=== PATIENT | male | born 1935 | race African-American/Black ===

== ENCOUNTER 2016-03-24 16:35 | Outpatient (CLI) | payer MEDICARE, OTHER | END 2016-03-24 23:59 | DX: E87.5 Hyperkalemia (principal); E78.5 Hyperlipidemia, unspecified; E11.9 Type 2 diabetes mellitus without complications; I10 Essential (primary) hypertension; N28.9 Disorder of kidney and ureter, unspecified ==

== ENCOUNTER 2018-08-16 10:37 | Outpatient (CLI) | payer MEDICARE, OTHER ==
--- NOTE | 2018-08-16 13:34 | CT Report ---
Reason: NEOPLASM OF UNSPECIFIED BEHAVIOR OF OTHER GENITOUR Procedure Date: 08/16/2018 Accession Number: [id number] / [id number] Procedure: CT - Abdomen/Pelvis WO CPT Code: FULL RESULT: EXAM: CT CHEST, ABDOMEN AND PELVIS EXAM DATE: 08/16/2018 10:53 AM. CLINICAL HISTORY: Prostate cancer. COMPARISONS: ABDOMEN/PELVIS W/WO 06/05/2013 1:55 PM CHEST W/O 08/16/2018 10:53 AM. TECHNIQUE: Routine helical CT imaging was performed through the chest, abdomen, and pelvis. IV contrast: None. Enteric contrast: No. Reconstructions: Coronal and sagittal. In accordance with CT protocol optimization, one or more of the following dose reduction techniques were utilized for this exam: automated exposure control, adjustment of mA and/or KV based on patient size, or use of iterative reconstructive technique. FINDINGS: Lungs/Pleura: In the right upper lobe on image 28 series 3 is a 1.8 x 1.1 cm slightly spiculated partially calcified soft tissue area of parenchymal distortion with an apparent associated 5 mm lucency potentially representing beam hardening artifact from the calcification versus small amount of associated bronchiectasis. Cavitation is felt to be less likely. 3 mm nodule left upper lobe image 20, 3 mm nodule left major fissure image 46, 4 mm nodule right lower lobe image 31, 3 mm nodule right middle lobe image 44. There is no pulmonary consolidation. Pleural spaces are clear. Mediastinum: There is no axillary, internal mammary, mediastinal or hilar lymphadenopathy by size criteria. There are three-vessel moderate coronary calcifications. There is no pericardial effusion. Liver: Normal. Gallbladder/Bile Ducts: Status post cholecystectomy. Spleen: A 1.9 x 1.6 cm hypodense lesion of the spleen was also seen in 2013, 1.4 x 1.3 cm at that time. Pancreas: Normal. Adrenal Glands: Normal. Kidneys: There are bilateral nonobstructing renal calculi measuring 3 mm or less as well as bilateral renal cysts and bilateral cortical parenchymal loss. 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 Peritoneal Cavity/Bowel: There is colonic diverticulosis, predominantly in the sigmoid colonic distribution without diverticulitis. There is no bowel obstruction. There is no free fluid or free air. There is no intraperitoneal or retroperitoneal lymphadenopathy by size criteria. Pelvic Organs: Fiducial markers are again seen in the region of the prostate bed. There is no definite pelvic lymphadenopathy by size criteria. Vasculature: Atherosclerotic disease without abdominal aortic aneurysm. Bones: Similar distribution of degenerative changes and presumed hemangioma along the inferior aspect of L4 with no definite aggressive osseous lesions detected. Other: None. IMPRESSION: Interval enlargement of hypodense splenic lesion as described, indeterminate in the setting of a limited CT without contrast. Pulmonary nodules including a 1.1 x 1.8 cm spiculated soft tissue focus with associated architectural distortion and calcification as described. Recommendation: Consideration for biopsy of the right upper lobe nodule. Management of the splenic finding depends on clinical index for suspicion. If warranted, consider contrast-enhanced examination or further characterization with ultrasound to determine whether MRI/nuclear medicine study would be helpful or biopsy is potentially indicated. RADIA
--- NOTE | 2018-08-17 14:34 | Nuclear Medicine Report ---
Reason: NEOPLASM OF UNSPECIFIED BEHAVIOR OF OTHER GENITOUR Procedure Date: 08/16/2018 Accession Number: [id number] / [id number] Procedure: NM - Bone Whole Body CPT Code: FULL RESULT: EXAM: BONE SCAN EXAM DATE: 08/16/2018 05:09 PM. CLINICAL HISTORY: NEOPLASM OF UNSPECIFIED BEHAVIOR OF OTHER GENITOUR. Prostate cancer. COMPARISON: ABDOMEN/PELVIS W/O 08/16/2018 10:53 AM CHEST W/O 08/16/2018 10:53 AM. TECHNIQUE: Following the intravenous administration of 30.7 mCi of technetium 99m MDP and an appropriate delay, a whole-body scan was performed in anterior and posterior projections. Site-specific spot views of the region of interest were obtained in various projections. FINDINGS: Normal renal radiotracer uptake and bladder activity. Normal soft tissue activity. Overall normal osseous uptake. Moderate uptake at the anterior skull in the region of the left frontal sinus, indeterminate, may be inflammatory. Moderate uptake with a linear configuration at approximately L3-L4, most likely corresponding to advanced disk degeneration by CT. Moderate uptake at the left aspect of the T11-T12 level of the spine, probably degenerative. Moderate lower cervical spinal uptake, may be degenerative. Small focus of uptake projecting over the region of the right ischiopubic ramus on the anterior whole body view, persists on spot images, indeterminate, metastasis versus urinary contamination. Small focus of uptake at the sternalchondral margin at the level of the fifth rib, indeterminate, may be posttraumatic. Nonspecific mild to moderate periprosthetic uptake at the knees bilaterally. Probable degenerative uptake at the shoulders, hips, sternoclavicular joints, bilateral feet. IMPRESSION: 1. Moderate uptake at the anterior skull in the region of the left frontal sinus, indeterminate, may be inflammatory. 2. Small focus of uptake projecting over the right ischiopubic ramus, indeterminate, metastasis versus urinary contamination. 3. Small focus of uptake at the right lower sternum, indeterminate, may be posttraumatic. 4. Other multifocal probable degenerative uptake as noted above. RADIA
== END 2018-08-16 10:38 | disposition home or self-care (01) ==
LOC: DI 10:37
PROVIDERS: ATTEND Urology
DX: D49.59 Neoplasm of unspecified behavior of other genitourinary organ (principal); N28.9 Disorder of kidney and ureter, unspecified; C61 Malignant neoplasm of prostate; R91.8 Other nonspecific abnormal finding of lung field; D73.89 Other diseases of spleen
CPT/HCPCS: 71250; 74176; 78306

== ENCOUNTER 2018-12-14 09:58 | Outpatient (CLI) | payer MEDICARE, OTHER ==
[2018-12-14 12:52] LABS: CALCIUM 8.9 mg/dL (8.5-10.3); CREATININE 1.8 mg/dL (0.6-1.2)
== END 2018-12-14 23:59 | disposition home or self-care (01) ==
LOC: LAB.WCP 09:58
PROVIDERS: ATTEND Family Medicine
DX: N18.3 Chronic kidney disease, stage 3 (moderate) (principal)
CPT/HCPCS: 36415; 80048

== ENCOUNTER 2022-04-24 13:52 | Outpatient (CLI) | payer MEDICARE, OTHER ==
--- NOTE | 2022-04-24 15:39 | XRAY Report ---
PROCEDURE: Elbow 3 View LT INDICATIONS: ELBOW JOINT PAIN TECHNIQUE: 3 views of the elbow were acquired. COMPARISON: None FINDINGS: Bones: No fractures or dislocations. No suspicious bony lesions. Enthesophyte formation at the medi al and lateral epicondyles may indicate underlying tendinopathy. Soft tissues: No elbow joint effusion. No suspicious soft tissue calcifications. Soft tissue edema is seen surrounding the elbow that is slightly more prominent posteriorly. IMPRESSION: 1.No acute osseous abnormality. If there is clinical concern or persistent symptoms, additional imagi ng such as repeat radiographs or advanced imaging (e.g. CT, MRI) may be helpful for further evaluatio n. 2.Mild nonspecific soft tissue edema, which is most prominent posteriorly. 3.Small enthesophytes at the medial and lateral epicondyles may indicate an underlying tendinopathy. Reviewed by: Yomi Araya MD on 04/24/2022 3:38 PM PDT Approved by: Yomi Araya MD on 04/24/2022 3:38 PM PDT Station ID: [id number]
== END 2022-04-24 13:53 | disposition home or self-care (01) ==
LOC: DI 13:52
PROVIDERS: ATTEND Physician Assistant
DX: M25.722 Osteophyte, left elbow (principal); M25.522 Pain in left elbow; R60.0 Localized edema

== ENCOUNTER 2022-09-28 13:18 | Emergency (ER) | payer MEDICARE, OTHER ==
[2022-09-28 13:37] VITALS: BP 139/59
--- NOTE | 2022-09-28 14:46 | XRAY Report ---
PROCEDURE: Wrist 4 View LT INDICATIONS: injury/pain TECHNIQUE: 3 views of the wrist were acquired. COMPARISON: None. FINDINGS: Bones: No fractures or dislocations. Moderate to severe osteoarthritic changes are noted throughout wrist joints. Significant widening of scapholunate interval is seen. Scaphoid is grossly intact. No suspicious bony lesions. Soft tissues: Diffuse wrist soft tissue swelling is seen. No suspicious soft tissue calcifications or masses. 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 No gross acute wrist fracture or dislocation. Widened scapholunate interval suggestive of ruptured scapholunate ligament. Diffuse wrist soft tissue swellin g. Reviewed by: Jeremie Jones MD on 09/28/2022 2:44 PM PDT Approved by: Jeremie Jones MD on 09/28/2022 2:44 PM PDT Station ID: [id number]
--- NOTE | 2022-09-28 14:52 | ED Physician Documentation ---
PD HPI UPPER EXT INJURY - Stated complaint Stated Complaint: LT WRIST PX - Chief complaint Chief Complaint: Ext Problem - History obtained from History obtained from: Patient - Additonal information Additional information: Patient is an 86-year-old male presenting for evaluation of left wrist pain that is been present for the past 2 weeks. Patient states that he believes he hit it on his car door 2 weeks ago as he was unloading boxes from the store. He reports having pain and swelling since that time. He has been trying lidocaine patches without any improvement. He reports increased swelling to the area. He does not take a blood thinner. He denies fever or rash. He has not taken any anti-inflammatories. Review of Systems Constitutional: denies: Fever Cardiac: denies: Chest pain / pressure Respiratory: denies: Dyspnea GI: denies: Abdominal Pain Musculoskeletal: reports: Extremity pain PD PAST MEDICAL HISTORY - Past Medical History Cardiovascular: Hypertension, High cholesterol Respiratory: Asthma, Other Endocrine/Autoimmune: Type 2 diabetes GI: None : Renal insuffiency, Nocturia, Frequency, Other HEENT: None Psych: None Musculoskeletal: Osteoarthritis, Gout, Other Derm: Other - Past Surgical History General: Cholecystectomy, Colonoscopy HEENT: Tonsil/Adenoidectomy - Present Medications Home Medications: Ambulatory Orders Medication Instructions Recorded Confirmed Aspirin [Aspir 81] 81 mg PO DAILY 08/25/13 09/08/13 Felodipine [Felodipine ER] 10 mg PO DAILY 08/25/13 09/11/13 Ibuprofen [Advil] 200 mg PO DAILY 08/25/13 09/08/13 Metoprolol Succinate [Toprol Xl] 200 mg PO DAILY 08/25/13 09/11/13 Simvastatin 40 mg PO DAILY 08/25/13 09/11/13 cloNIDine HCL [Clonidine HCl] 0.1 mg PO BID 08/25/13 09/11/13 lisinopriL [Lisinopril] 40 mg PO DAILY 08/25/13 09/11/13 - Allergies Allergies/Adverse Reactions: Allergies Allergy/AdvReac Type Severity Reaction Status Date / Time peanut Allergy Anaphylaxis Verified 09/08/13 07:51 PD ED PE NORMAL - General General: Alert and oriented X 3, No acute distress, Well developed/nourished - HEENT HEENT: Atraumatic - Neck Neck: Supple, no meningeal sign - Cardiac Cardiac: Strong equal pulses - Respiratory Respiratory: No respiratory distress - Derm Derm: Warm and dry, No rash - Extremities Extremities: Other ( Swelling to left wrist and extending to dorsum of left hand, no significant bony tenderness, no snuffbox tenderness, no tenderness to the hand, no erythema or warmth, good range of motion of left wrist) Results - Vitals Vitals: Vital Signs - 24 hr 09/28/22 09/28/22 13:28 15:08 Temperature 36.6 C Heart Rate 70 84 Respiratory 16 16 Rate Blood Pressure 139/59 H O2 Saturation 97 98 Oxygen O2 Source Room air PD Medical Decision Making - ED course Complexity details: reviewed results, re-evaluated patient ED course: Patient is an 86-year-old male presenting for evaluation of left wrist pain after trauma 2 weeks ago. He does have swelling to the affected area. No erythema, fever or warmth to joint to suggest infection.X-ray was obtained which I reviewed and I see no fracture or dislocation but radiology reports concern for possible ligament injury. I reviewed these results with the patient. He has no snuffbox tenderness. We will apply a wrist splint and have patient use anti-inflammatories and elevate the extremity along with follow-up with orthopedic surgery and primary care provider. Patient is counseled regarding concerning symptoms to return for. Departure - Departure Disposition: 01 Home, Self Care Clinical Impression: Left wrist injury Condition: Stable Instructions: ED Sprain Wrist Follow-Up: Kang Baldwin MD [Provider Admit Priv/Credential] - Comments: Your wrist x-ray does not show a broken or dislocated bone but there is significant osteoarthritis and also concerns for possible injury to one of the ligaments. I placed you into a Velcro wrist splint and would recommend you continue to use the splint. Please also ice and elevate the arm as well as use an anti-inflammatory such as ibuprofen or acetaminophen. I would recommend close follow-up with your primary care provider and orthopedic surgery. Please return to the ER if you develop any worsening symptoms such as redness or fever. 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 No gross acute wrist fracture or dislocation. Widened scapholunate interval suggestive of ruptured scapholunate ligament. Diffuse wrist soft tissue swelling. Forms: PCP List Discharge Date/Time: 09/28/22 15:08
[2022-09-28 15:12] VITALS: O2SAT 98
== END 2022-09-28 15:08 | disposition home or self-care (01) ==
LOC: ED 13:18
DX: S69.92XA Unspecified injury of left wrist, hand and finger(s), initial encounter (principal); W22.09XA Striking against other stationary object, initial encounter
CPT/HCPCS: 99283